=== PATIENT | female | born 1960 | race African-American/Black ===

== ENCOUNTER 2016-05-14 15:27 | Inpatient (IN) | payer BC ==
[~2016-05-14] VITALS: Ht 165.1 cm; Wt 74.8 kg
[2016-05-14 15:53] LABS: BASOPHILS % (AUTO) 0.8 % (0.0-2.0); DIFF TOTAL % 100 %; EOSINOPHILS # (AUTO) 0.1 /CMM (0.0-0.7); EOSINOPHILS % (AUTO) 1.7 % (0.0-6.0); HEMATOCRIT 35 % (33-45); HEMOGLOBIN 11.3 g/dL (11.5-14.8); LYMPHOCYTES # (AUTO) 2.1 /CMM (0.8-4.8); LYMPHOCYTES % (AUTO) 37.4 % (20.0-44.0); MEAN CORPUSCULAR HEMOGLOBIN 29 PG (26.0-33.0); MEAN CORPUSCULAR HGB CONC 33 g/dl (31.0-36.0); MEAN CORPUSCULAR VOLUME 89 fL (82-100); MONOCYTES # (AUTO) 0.4 /CMM (0.1-1.30); MONOCYTES % (AUTO) 7.8 % (2.0-12.0); NEUTROPHILS # (AUTO) 2.9 /CMM (1.8-8.9); NEUTROPHILS % (AUTO) 52.3 % (43.0-81.0); PLATELET COUNT (AUTO) 381 /CMM (150-450); RED BLOOD CELL COUNT(AUTO) 3.92 MIL/uL (4.0-5.2); WHITE BLOOD COUNT (AUTO) 5.5 K/uL (4.3-11.0)
[2016-05-14] MEDS ORDERED: IV NS 0.9% 1,000 ML BAG IV ONE (16:00)
[2016-05-14] MEDS ORDERED: IV NS 0.9% 250 ML IV ONE (16:01)
[2016-05-14] MEDS ORDERED: IOHEXOL-300 100 ML VIAL IV ONE (16:02)
[2016-05-14 16:04] LABS: ANION GAP 12 (5-14); CARBON DIOXIDE 28 mmol/L (21-32); CHLORIDE 101 mmol/L (98-107); CREATININE 0.8 mg/dL (0.6-1.3); GFR 91 mL/min (>60); GLUCOSE 165 mg/dL (74-106); POTASSIUM 2.9 mmol/L (3.5-5.1); SODIUM SERUM 138 mmol/L (136-145); UREA NITROGEN, BLOOD 16 mg/dL (7-18)
[2016-05-14 16:08] LABS: INR 1.1 (0.87-1.13); PROTHROMBIN TIME 11.5 SECS (9.5-12.7)
[2016-05-14 16:13] LABS: TROPONIN I < 0.017 ng/mL (0.00-0.056)
[2016-05-14] MEDS ORDERED: IV SET PRIMARY 1 EA INFUS.SET MC ONE (16:16)
[2016-05-14] MEDS ORDERED: IV NS 0.9% 1,000 ML ONE (16:16)
[2016-05-14] MEDS ORDERED: LATA2.5D7 EACHEYE (17:10)
[2016-05-14] MEDS ORDERED: DORZ10DR11 EACHEYE (17:10)
[2016-05-14] MEDS ORDERED: LORA-258 PO (17:10)
[2016-05-14] MEDS ORDERED: LOSA1TAB35 PO (17:10)
[2016-05-14] MEDS ORDERED: SERT50TA PO (17:10)
[2016-05-14] MEDS ORDERED: BRIM5DRO5 EACHEYE (17:10)
[2016-05-14 17:17] LABS: ALBUMIN 3.5 g/dL (3.4-5.0); BILIRUBIN,DIRECT 0.1 mg/dL (0.0-0.2); BILIRUBIN,TOTAL 0.3 mg/dL (0.2-1.0); INDIRECT BILIRUBIN 0.2 mg/dL (0.0-1.1); TOTAL PROTEIN, SERUM 7.5 g/dL (6.4-8.2)
[2016-05-14] MEDS ORDERED: IV SET PRIMARY PUMP SET 1 EA INFUS.SET MC ONE ×3 (17:21→21:45)
[2016-05-14] MEDS ORDERED: METRONIDAZOLE 500MG/ NS 100ML 100 ML IV ONE (17:21)
[2016-05-14] MEDS ORDERED: ONDANSETRON HCL/PF 4 MG/2 ML VIAL ONE (17:25)
[2016-05-14] MEDS ORDERED: CIPROFLOXACIN IV RTU 400 MG in PREMIX 1 EA IV SCH (17:30)
[2016-05-14] MEDS ORDERED: FLAGYL/NS RTU 500 MG/100 ML PIGGYBACK IV ONE (17:30)
[2016-05-14] MEDS ORDERED: ONDANSETRON HCL/PF 4 MG/2 ML VIAL IV ONE (17:30)
[2016-05-14] MEDS ORDERED: ACETAMINOPHEN 325 MG TABLET PO PRN (19:00)
[2016-05-14] MEDS ORDERED: MAGNESIUM HYDROXIDE 30 ML UDC PO PRN (19:00)
[2016-05-14] MEDS ORDERED: ZOLPIDEM TARTRATE 5 MG TABLET PO PRN (19:00)
[2016-05-14] MEDS ORDERED: LORAZEPAM 0.5 MG TABLET PO PRN (19:00)
[2016-05-14] MEDS ORDERED: Z GUARD REMEDY 2 OZ OINT TP PRN (19:00)
[2016-05-14] MEDS ORDERED: MAG HYDROX/AL HYDROX/SIMETH 30 ML UDC PO PRN (19:00)
[2016-05-14] MEDS ORDERED: ONDANSETRON HCL/PF 4 MG/2 ML VIAL IVP PRN (19:00)
[2016-05-14] MEDS ORDERED: HYDROCODONE/APAP 5/325MG 1 EACH TABLET PO PRN (19:00)
[2016-05-14 19:30] VITALS: BP 134/80
[2016-05-14 20:00] VITALS: BP 134/84
[2016-05-14] MEDS ORDERED: Potassium Chloride 40 MEQ in IV D5/0.45 NACL 1,000 ML IV ONE (20:00)
[2016-05-14] MEDS ORDERED: POTASSIUM CHLORIDE 20 MEQ TAB.PRT.SR PO ONE (20:00)
[2016-05-14] MEDS ORDERED: SECONDARY IV SET 1 EA INFUS.SET MC ONE (21:45)
[2016-05-14] MEDS: METRONIDAZOLE 500MG/ NS 100ML 500 MG in PREMIX 1 EA IV SCH (21:48)
[2016-05-15] VITALS: BP 124/81
[2016-05-15 04:00] VITALS: BP 116/69
[2016-05-15] MEDS: METRONIDAZOLE 500MG/ NS 100ML 500 MG in PREMIX 1 EA IV SCH ×3 (04:47→20:21)
[2016-05-15 06:39] LABS: BASOPHILS % (AUTO) 0.4 % (0.0-2.0); DIFF TOTAL % 100 %; EOSINOPHILS % (AUTO) 0.1 % (0.0-6.0); HEMATOCRIT 29 % (33-45); HEMOGLOBIN 9.3 g/dL (11.5-14.8); LYMPHOCYTES # (AUTO) 1.8 /CMM (0.8-4.8); LYMPHOCYTES % (AUTO) 21.5 % (20.0-44.0); MEAN CORPUSCULAR HEMOGLOBIN 29 PG (26.0-33.0); MEAN CORPUSCULAR HGB CONC 33 g/dl (31.0-36.0); MEAN CORPUSCULAR VOLUME 89 fL (82-100); MONOCYTES # (AUTO) 0.6 /CMM (0.1-1.30); MONOCYTES % (AUTO) 6.7 % (2.0-12.0); NEUTROPHILS % (AUTO) 71.3 % (43.0-81.0); PLATELET COUNT (AUTO) 314 /CMM (150-450); RED BLOOD CELL COUNT(AUTO) 3.21 MIL/uL (4.0-5.2); WHITE BLOOD COUNT (AUTO) 8.5 K/uL (4.3-11.0)
[2016-05-15 06:49] LABS: CALCIUM, SERUM 8.7 mg/dL (8.5-10.1); CREATININE 0.8 mg/dL (0.6-1.3); PHOSPHORUS 3.1 mg/dL (2.5-4.9); POTASSIUM 3.3 mmol/L (3.5-5.1)
[2016-05-15 06:59] VITALS: BP 120/70
[2016-05-15] MEDS: PANTOPRAZOLE 40 MG TABLET.DR PO SCH (08:22)
[2016-05-15] MEDS: TIMOLOL MAL/DORZOLAM HCL OPHTH 10 ML BOTTLE EACHEYE SCH ×2 (08:23→16:47)
[2016-05-15] MEDS: BRIMONIDINE TARTRATE OPHT SOLN 5 ML BOTTLE EACHEYE SCH (08:23)
[2016-05-15] MEDS: SERTRALINE HCL 50 MG TABLET PO SCH (08:23)
[2016-05-15] MEDS ORDERED: SECONDARY IV SET 1 EA INFUS.SET MC ONE (08:24)
[2016-05-15] MEDS: CIPROFLOXACIN IV RTU 400 MG in PREMIX 1 EA IV SCH ×2 (08:25→20:21)
[2016-05-15] MEDS ORDERED: IV SET PRIMARY PUMP SET 1 EA INFUS.SET MC ONE (10:50)
[2016-05-15] MEDS: POTASSIUM CL. PREMIX PERIPHER. 50 ML IV SCH ×4 (10:55→15:10)
[2016-05-15] MEDS: IV NS 0.9% 1,000 ML IV PRN (15:10)
[2016-05-15 16:00] VITALS: BP_SYST 113; BP_SYST 148; BP_DIAS 62; BP_DIAS 74
[2016-05-15 16:02] VITALS: BP 113/62
[2016-05-15 16:13] LABS: THYROID STIMULATING HORMONE 2.045 uIU/mL (0.358-3.74)
[2016-05-15 16:34] LABS: RETICULOCYTE COUNT 1.7 % (0.6-2.5)
[2016-05-15] MEDS ORDERED: LATANOPROST EYE DROP 0.005% 2.5 ML BOTTLE EACHEYE SCH (18:00)
[2016-05-15 20:00] VITALS: BP 119/64
[2016-05-15] MEDS: LATANOPROST EYE DROP 0.005% 2.5 ML BOTTLE EACHEYE SCH (21:11)
[2016-05-16] MEDS: IV NS 0.9% 1,000 ML IV PRN (03:30)
[2016-05-16] MEDS: METRONIDAZOLE 500MG/ NS 100ML 500 MG in PREMIX 1 EA IV SCH ×3 (04:09→20:20)
[2016-05-16 08:00] VITALS: BP 124/69
[2016-05-16] MEDS: TIMOLOL MAL/DORZOLAM HCL OPHTH 10 ML BOTTLE EACHEYE SCH ×2 (08:14→16:28)
[2016-05-16] MEDS: BRIMONIDINE TARTRATE OPHT SOLN 5 ML BOTTLE EACHEYE SCH (08:15)
[2016-05-16] MEDS: SERTRALINE HCL 50 MG TABLET PO SCH (08:15)
[2016-05-16] MEDS: CIPROFLOXACIN IV RTU 400 MG in PREMIX 1 EA IV SCH ×2 (08:15→21:33)
[2016-05-16] MEDS: PANTOPRAZOLE 40 MG TABLET.DR PO SCH (08:15)
[2016-05-16] MEDS ORDERED: SECONDARY IV SET 1 EA INFUS.SET MC ONE (08:19)
[2016-05-16 11:13] LABS: VIT D, 25-HYDROXY 34.7 ng/mL (30.0-100.0)
[2016-05-16 16:00] VITALS: BP 130/70
[2016-05-16 18:42] LABS: BASOPHILS % (AUTO) 0.5 % (0.0-2.0); DIFF TOTAL % 100 %; EOSINOPHILS # (AUTO) 0.1 /CMM (0.0-0.7); EOSINOPHILS % (AUTO) 1.4 % (0.0-6.0); HEMATOCRIT 26 % (33-45); HEMOGLOBIN 8.4 g/dL (11.5-14.8); LYMPHOCYTES # (AUTO) 1.7 /CMM (0.8-4.8); LYMPHOCYTES % (AUTO) 33.2 % (20.0-44.0); MEAN CORPUSCULAR HEMOGLOBIN 29 PG (26.0-33.0); MEAN CORPUSCULAR HGB CONC 32 g/dl (31.0-36.0); MEAN CORPUSCULAR VOLUME 89 fL (82-100); MONOCYTES # (AUTO) 0.4 /CMM (0.1-1.30); NEUTROPHILS # (AUTO) 2.9 /CMM (1.8-8.9); NEUTROPHILS % (AUTO) 56.9 % (43.0-81.0); PLATELET COUNT (AUTO) 287 /CMM (150-450); RED BLOOD CELL COUNT(AUTO) 2.94 MIL/uL (4.0-5.2); WHITE BLOOD COUNT (AUTO) 5.1 K/uL (4.3-11.0)
[2016-05-16 19:27] LABS: CALCIUM, SERUM 8.6 mg/dL (8.5-10.1); CREATININE 0.9 mg/dL (0.6-1.3); POTASSIUM 3.8 mmol/L (3.5-5.1)
[2016-05-16 20:00] VITALS: BP 126/65
[2016-05-16] MEDS: LATANOPROST EYE DROP 0.005% 2.5 ML BOTTLE EACHEYE SCH (20:20)
[2016-05-17] MEDS ORDERED: IV SET PRIMARY PUMP SET 1 EA INFUS.SET MC ONE (00:52)
[2016-05-17] MEDS: IV NS 0.9% 1,000 ML IV PRN (01:15)
[2016-05-17] MEDS: METRONIDAZOLE 500MG/ NS 100ML 500 MG in PREMIX 1 EA IV SCH (04:14)
[2016-05-17 08:00] VITALS: BP 139/88
[2016-05-17 08:27] LABS: BASOPHILS % (AUTO) 0.6 % (0.0-2.0); DIFF TOTAL % 100 %; EOSINOPHILS # (AUTO) 0.1 /CMM (0.0-0.7); EOSINOPHILS % (AUTO) 1.4 % (0.0-6.0); HEMATOCRIT 26 % (33-45); HEMOGLOBIN 8.5 g/dL (11.5-14.8); LYMPHOCYTES # (AUTO) 1.3 /CMM (0.8-4.8); LYMPHOCYTES % (AUTO) 30.7 % (20.0-44.0); MEAN CORPUSCULAR HEMOGLOBIN 29 PG (26.0-33.0); MEAN CORPUSCULAR HGB CONC 32 g/dl (31.0-36.0); MEAN CORPUSCULAR VOLUME 89 fL (82-100); MONOCYTES # (AUTO) 0.4 /CMM (0.1-1.30); MONOCYTES % (AUTO) 9.2 % (2.0-12.0); NEUTROPHILS # (AUTO) 2.4 /CMM (1.8-8.9); NEUTROPHILS % (AUTO) 58.1 % (43.0-81.0); PLATELET COUNT (AUTO) 271 /CMM (150-450); RED BLOOD CELL COUNT(AUTO) 2.95 MIL/uL (4.0-5.2); WHITE BLOOD COUNT (AUTO) 4.1 K/uL (4.3-11.0)
[2016-05-17 08:35] LABS: CALCIUM, SERUM 8.6 mg/dL (8.5-10.1); CREATININE 0.8 mg/dL (0.6-1.3); POTASSIUM 3.3 mmol/L (3.5-5.1)
[2016-05-17] MEDS: BRIMONIDINE TARTRATE OPHT SOLN 5 ML BOTTLE EACHEYE SCH (09:41)
[2016-05-17] MEDS: TIMOLOL MAL/DORZOLAM HCL OPHTH 10 ML BOTTLE EACHEYE SCH (09:41)
[2016-05-17] MEDS: PANTOPRAZOLE 40 MG TABLET.DR PO SCH (09:41)
[2016-05-17] MEDS: SERTRALINE HCL 50 MG TABLET PO SCH (09:41)
[2016-05-17] MEDS: CIPROFLOXACIN IV RTU 400 MG in PREMIX 1 EA IV SCH (09:42)
[2016-05-17] MEDS ORDERED: POTASSIUM CHLORIDE 20 MEQ TAB.PRT.SR PO SCH (11:30)
[2016-05-17] MEDS ORDERED: METRONIDAZOLE 500 MG TABLET PO SCH (13:00)
[2016-05-17] MEDS ORDERED: CIPR500T5 PO (14:45)
[2016-05-17] MEDS ORDERED: METR500T PO (14:45)
[2016-05-17 15:35] VITALS: BP 138/88
== END 2016-05-17 16:30 | disposition home or self-care (01) | DRG 379 ==
LOC: ER 15:31 → TELE 17:52 → MED 05-15 11:07
PROVIDERS: ADMIT Internal Medicine; ATTEND Internal Medicine
DX: K57.93 Diverticulitis of intestine, part unspecified, without perforation or abscess with bleeding (principal); E87.6 Hypokalemia; I10 Essential (primary) hypertension; F41.9 Anxiety disorder, unspecified; K57.92 Diverticulitis of intestine, part unspecified, without perforation or abscess without bleeding; D50.0 Iron deficiency anemia secondary to blood loss (chronic)
CPT/HCPCS: 36415; 71010-TC; 80048-TC; 80076-TC; 82306; 82378; 82728-TC; 82746; 83540-TC; 83615-TC; 83690-TC; 83735-TC; 84100-TC; 84443-TC; 84484-TC; 85025-TC; 85045-TC; 85652-TC; 85730-TC; 87081-TC; 93307-TC; A4216; A4606; J0744; J2405; J3480; J3490; J7030; J7050; Q9967; Z7610

== ENCOUNTER 2018-03-18 07:14 | Emergency (ER) | payer BC, OTHER ==
[~2018-03-18] VITALS: Ht 165.1 cm; Wt 93.4 kg
[~2018-03-18 07:14] MED LIST: BRIM5DRO5 EACHEYE; CIPR500T5 PO; DORZ10DR11 EACHEYE; LATA2.5D7 EACHEYE; LORA-258 PO; LOSA1TAB42 PO; METR500T PO; SERT50TA PO
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
[2018-03-18 08:03] LABS: BASOPHILS % (AUTO) 0.8 % (0.0-2.0); EOSINOPHILS % (AUTO) 1.6 % (0.0-6.0); HEMATOCRIT 38 % (33-45); HEMOGLOBIN 12.4 g/dL (11.5-14.8); LYMPHOCYTES # (AUTO) 1.5 /CMM (0.8-4.8); LYMPHOCYTES % (AUTO) 31.2 % (20.0-44.0); MEAN CORPUSCULAR HGB CONC 33 g/dl (31.0-36.0); MEAN CORPUSCULAR VOLUME 90 fL (82-100); MONOCYTES # (AUTO) 0.4 /CMM (0.1-1.30); MONOCYTES % (AUTO) 8.5 % (2.0-12.0); NEUTROPHILS # (AUTO) 2.8 /CMM (1.8-8.9); NEUTROPHILS % (AUTO) 57.9 % (43.0-81.0); PLATELET COUNT (AUTO) 253 /CMM (150-450); RED BLOOD CELL COUNT(AUTO) 4.24 MIL/uL (4.0-5.2); WHITE BLOOD COUNT (AUTO) 4.8 K/uL (4.3-11.0)
[2018-03-18] MEDS ORDERED: IOHEXOL-300 100 ML VIAL IV ONE (08:05)
[2018-03-18] MEDS ORDERED: CT SWABBABLE VALVE TRANS SET 1 EA INFUS.SET MC ONE (08:05)
[2018-03-18] MEDS ORDERED: IV NS 0.9% 250 ML IV ONE (08:05)
[2018-03-18 08:14] LABS: CREATININE 0.9 mg/dL (0.6-1.3); POTASSIUM 3.4 mmol/L (3.5-5.1)
[2018-03-18 08:20] LABS: ALBUMIN 3.6 g/dL (3.4-5.0); BILIRUBIN,DIRECT 0.1 mg/dL (0.0-0.2); BILIRUBIN,TOTAL 0.3 mg/dL (0.2-1.0)
--- NOTE | 2018-03-18 08:32 | NUR ---
OUT FOR CT HEAD, ABDOMEN AND PELVIC SCAN
[2018-03-18] MEDS ORDERED: IBUPROFEN 600 MG TABLET PO ONE ×2 (11:00→11:09)
[2018-03-18] MEDS ORDERED: HYDROCODONE/APAP 5/325MG 1 EACH TABLET PO ONE (11:00)
--- NOTE | 2018-03-18 11:15 | NUR ---
PT REFUSED IBUPOFEN 600MG D/T STOMACH REACTION
[2018-03-18] MEDS ORDERED: HYDROCODONE/APAP 5/325MG 1 EACH TABLET ONE (11:21)
[2018-03-18 11:44] VITALS: BP 142/84
--- NOTE | 2018-03-18 11:44 | NUR ---
Patient discharged to home in stable condition. Written and verbal after care instructions given. Patient verbalizes understanding of instruction.
== END 2018-03-18 11:45 | disposition home or self-care (01) ==
LOC: ER 07:17
DX: S16.1XXA Strain of muscle, fascia and tendon at neck level, initial encounter (principal); S39.81XA Other specified injuries of abdomen, initial encounter; R51 Headache; E86.0 Dehydration; I10 Essential (primary) hypertension; H40.9 Unspecified glaucoma; V32.0XXA Driver of three-wheeled motor vehicle injured in collision with two- or three-wheeled motor vehicle in nontraffic accident, initial encounter; Y93.89 Activity, other specified; Y92.410 Unspecified street and highway as the place of occurrence of the external cause; Y99.8 Other external cause status
CPT/HCPCS: 36415; 70450; 71045; 72125; 74177; 80048; 80076; 83690; 85025; 85730; 99284; A4606; Q9967; Z7610; J7050